=== PATIENT | female | born 1995 | race Caucasian/White ===

== ENCOUNTER 2021-07-06 21:38 | Inpatient (IN) | payer BC, OTHER ==
[~2021-07-06] VITALS: Ht 165.1 cm; Wt 79.4 kg
--- NOTE | 2021-07-06 23:06 | NUR ---
BIBSELF C/O L 4TH DIGIT (THE ONE NEXT TO THE PINKY) PAIN S/P DROPPING 18IN LAPTOP ON IT. PLACED IN BED, AWAITING ER MD FOR EVAL AND ORDERS.
[2021-07-06] MEDS ORDERED: TDAP [DIPH/PERTUSSIS/TET] 0.5 ML VIAL IM ONE (23:26)
[2021-07-06] MEDS: TDAP [DIPH/PERTUSSIS/TET] 0.5 ML VIAL IM ONE (23:30)
[2021-07-07] MEDS ORDERED: LIDOCAINE HCL/MPF 1% 30 ML VIAL IJ ONE (00:56)
[2021-07-07] MEDS ORDERED: BUPIVACAINE 0.5 % PF 150 MG/30 ML VIAL ONE ×2 (00:56→12:01)
--- NOTE | 2021-07-07 01:04 | NUR ---
ER AT BEDSIDE FOR WOUND CARE
--- NOTE | 2021-07-07 01:46 | NUR ---
BLOOD TAKEN AND SENT TO LAB.
[2021-07-07] MEDS ORDERED: CEFTRIAXONE 1GM BAG (ER ONLY) 50 ML IV ONE (01:48)
[2021-07-07] MEDS ORDERED: TDAP [DIPH/PERTUSSIS/TET] 0.5 ML VIAL IM ONE (01:48)
[2021-07-07] MEDS: TDAP [DIPH/PERTUSSIS/TET] 0.5 ML VIAL IM ONE (01:59)
[2021-07-07] MEDS ORDERED: CEFTRIAXONE 1GM BAG (ER ONLY) 1 GM/50 ML PIGGYBACK IV ONE (02:00)
[2021-07-07 02:01] LABS: BASOPHILS % (AUTO) 0.4 % (0.0-2.0); EOSINOPHILS % (AUTO) 0.8 % (0.0-6.0); HEMATOCRIT 36 % (33-45); HEMOGLOBIN 11.7 g/dL (11.5-14.8); LYMPHOCYTES # (AUTO) 2.4 K/uL (0.8-4.8); LYMPHOCYTES % (AUTO) 21.1 % (20.0-44.0); MEAN CORPUSCULAR HGB CONC 33 g/dl (31.0-36.0); MEAN CORPUSCULAR VOLUME 87 fL (82-100); MONOCYTES # (AUTO) 0.8 K/uL (0.1-1.30); MONOCYTES % (AUTO) 7.1 % (2.0-12.0); NEUTROPHILS # (AUTO) 7.9 K/uL (1.8-8.9); NEUTROPHILS % (AUTO) 70.6 % (43.0-81.0); PLATELET COUNT (AUTO) 274 K/uL (150-450); RED BLOOD CELL COUNT(AUTO) 4.11 MIL/uL (4.0-5.2); WHITE BLOOD COUNT (AUTO) 11.3 K/uL (4.3-11.0)
--- NOTE | 2021-07-07 02:12 | NUR ---
RESTING COMFORTABLY. VSS.
[2021-07-07 03:52] LABS: CREATININE 0.9 mg/dL (0.6-1.3)
--- NOTE | 2021-07-07 05:18 | NUR ---
RECIEVED BED 322-2
[2021-07-07] MEDS ORDERED: ZOLPIDEM TARTRATE 5 MG TABLET PO PRN (07:00)
[2021-07-07] MEDS ORDERED: MAGNESIUM HYDROXIDE 30 ML UDC PO PRN (07:00)
[2021-07-07] MEDS ORDERED: ACETAMINOPHEN 325 MG TABLET PO PRN (07:00)
[2021-07-07] MEDS ORDERED: MAG HYDROX/AL HYDROX/SIMETH 30 ML UDC PO PRN (07:00)
[2021-07-07] MEDS ORDERED: ONDANSETRON HCL/PF 4 MG/2 ML VIAL IVP PRN (07:00)
[2021-07-07] MEDS ORDERED: Z GUARD REMEDY 2 OZ OINT TP PRN (07:00)
[2021-07-07] MEDS: PANTOPRAZOLE 40 MG TABLET.DR PO SCH ×2 (07:30→09:04)
--- NOTE | 2021-07-07 07:37 | NUR ---
REPORT GIVEN TO UMA FRANCOIS FOR KALYANI
--- NOTE | 2021-07-07 07:37 | NUR ---
Katrin weaver in ED - 07/07/21 at 0737 by KHOA REPORT GIVEN TO UMA COYLE KALYANI
--- NOTE | 2021-07-07 07:45 | NUR ---
RN OPENING NOTE- PT FROM ED W LACERATION TO LEFT FOOT 4TH DIGIT. VS STABLE, NO DISTRESS, ADMIT PER PROTOCOL
--- NOTE | 2021-07-07 07:50 | NUR ---
HUMAN SERVICES INSTRUCTOR NOTE- 25 Y/O FEMALE PT DROPPED LAPTOP COMPUTER ON LEFT FOOT, DAMAGING 4TH TOE. LACERATION ND FURTHER INJURIES PRESENT. CATERPILLAR MECHANIC TO DO SURGICAL INTERVENTION AND THIS IS REASON FOR ADMISSION. VS - BP- 118/63, HR- 68, RR- 18, T- 97.9, SATS 97% RA. PT HAS IVF D5 1/2 NS AT 75/HR TO HEP LOCK 20G LA. DRESSING INTACT TO LEFT FOOT, ASSISTED TO BR, NEEDS ATTENDED, SURGICAL CONSENT PACKAGE PREPARED, MEDS PER ORDERS. SIDE RAILS UP, BED LOCKED, CALL LIGHT IN REACH. NPO STATUS MAINTAINED. ASSIST/ MONITOR
[2021-07-07] MEDS ORDERED: OMEP40CA21 PO (08:47)
[2021-07-07 09:00] VITALS: BP 118/63
[2021-07-07] MEDS: MORPHINE SULFATE INJ 2 MG/ML DISP.SYRIN IV PRN ×2 (09:04→15:17)
[2021-07-07] MEDS: IV D5/0.45 NACL 1,000 ML IV PRN (09:37)
[2021-07-07] MEDS ORDERED: BUPIVACAINE MPF 0.5% W/EPI INJ 30 ML VIAL ONE (10:42)
[2021-07-07] MEDS ORDERED: LIDOCAINE 1% INJ 50 ML MDV IJ ONE (10:42)
[2021-07-07] MEDS ORDERED: ANESTHESIA TRAY IN PYXIS 1 EA TRAY MC ONE (10:42)
[2021-07-07] MEDS ORDERED: MIDAZOLAM HCL 2 MG/2ML VIAL ONE (10:58)
[2021-07-07] MEDS ORDERED: FENTANYL PF 250MCG/5ML AMPUL ONE (10:58)
[2021-07-07] MEDS ORDERED: FAMOTIDINE/PF INJ 20 MG/2 ML VIAL IV ONE (10:59)
--- NOTE | 2021-07-07 11:45 | NUR ---
RN NOTE- [facility] CX COLLECTED AND SENT EARLIER. RESULTS NEG. PT TAKEN TO OR FOR SURGERY
[2021-07-07] MEDS ORDERED: BACITRACIN ZINC OINT (15 GM) 15 GM TUBE TP ONE (12:56)
[2021-07-07] MEDS ORDERED: BACITRACIN ZINC OINT PACKET 1 EA PACKET TP ONE (12:56)
--- NOTE | 2021-07-07 14:15 | NUR ---
RN NOTE- PT BACK FROM SURGERY TO LEFT FOOT. VS STABLE, AOX4, CALM, NO DISTRESS, MINIMAL PAIN, NO NEW ORDERS, CONTINUE CURRENT ORDERS, IV FLUIDS AND RX. MONITOR AND ASSIST.
[2021-07-07 16:00] VITALS: BP 95/50
--- NOTE | 2021-07-07 16:25 | NUR ---
RN NOTE- PT W INCREASED LT FOOT PAIN. MORPHINE 2 MG IVP ADMINISTERED [address] BECK INCREASED DOSE TO MORPHINE 4 MG IV Q4H PRN . ADDITIONAL MORPHINE 2 MG IVP ADMINISTERED NOW X ONE DOSE.
[2021-07-07] MEDS ORDERED: MORPHINE SULFATE INJ 2 MG/ML DISP.SYRIN IV ONE (17:00)
--- NOTE | 2021-07-07 17:30 | NUR ---
RN NOTE- COMFORTABLE. RX EFFECTIVE
--- NOTE | 2021-07-07 18:55 | NUR ---
RN CLOSING NOTE- PT IN BED, AOX4, COMFORTABLE, IVF D51/2NS AT 75/HR. DRESSING INTACT TO LT FOOT. NO DRAINAGE NOTED, ELEVATED W PILLOW. ONE EPISODE OF N&V. EATING DINNER AT PRESENT. PAIN RELIEVED W MSO4/ SIDE RAILS UP, BED LOCKED, CALL LIGHT IN REACH. MONITOR/ASSIST
[2021-07-07] MEDS ORDERED: MORPHINE SULFATE INJ 2 MG/ML DISP.SYRIN IV PRN (19:00)
--- NOTE | 2021-07-07 19:30 | NUR ---
MS RN OPENING NOTES: RECEIVED PATIENT IN BED, AWAKE, A/O X4. NO S/S OF DISTRESS NOTED. NO N/V NOTED. CALL LIGHT WITHIN REACH. BED IN LOWEST AND LOCKED POSITION. BOYFRIEND AT THE BEDSIDE. LEFT FOOT ELEVATED ON THE PILLOW, WITH GOOD CMS.
[2021-07-07 20:00] VITALS: BP_SYST 98; BP_DIAS 50; BP_DIAS 70
[2021-07-07] MEDS: HYDROCODONE/APAP 5/325MG TABLET PO PRN (20:56)
[2021-07-08] MEDS: HYDROCODONE/APAP 5/325MG TABLET PO PRN ×3 (01:18→10:32)
[2021-07-08] MEDS: IV D5/0.45 NACL 1,000 ML IV PRN (06:18)
[2021-07-08 06:32] LABS: BASOPHILS % (AUTO) 0.2 % (0.0-2.0); EOSINOPHILS % (AUTO) 0.2 % (0.0-6.0); HEMATOCRIT 33 % (33-45); HEMOGLOBIN 10.7 g/dL (11.5-14.8); LYMPHOCYTES % (AUTO) 5.7 % (20.0-44.0); MEAN CORPUSCULAR HGB CONC 32 g/dl (31.0-36.0); MEAN CORPUSCULAR VOLUME 88 fL (82-100); MONOCYTES # (AUTO) 1.6 K/uL (0.1-1.30); MONOCYTES % (AUTO) 9.1 % (2.0-12.0); NEUTROPHILS # (AUTO) 15.1 K/uL (1.8-8.9); NEUTROPHILS % (AUTO) 84.8 % (43.0-81.0); PLATELET COUNT (AUTO) 205 K/uL (150-450); RED BLOOD CELL COUNT(AUTO) 3.76 MIL/uL (4.0-5.2); WHITE BLOOD COUNT (AUTO) 17.8 K/uL (4.3-11.0)
[2021-07-08] MEDS ORDERED: CEFTRIAXONE 1 G in IV D5W 50 ML IV SCH (07:00)
[2021-07-08 07:06] LABS: CALCIUM, SERUM 7.8 mg/dL (8.5-10.1); MAGNESIUM 1.8 mg/dL (1.8-2.4); PHOSPHORUS 3.2 mg/dL (2.5-4.9); POTASSIUM 3.5 mmol/L (3.5-5.1)
--- NOTE | 2021-07-08 07:30 | NUR ---
MS RN OPENING NOTES RECEIVED PATIENT IN BED, AWAKE, A/O X4. NO S/S OF DISTRESS NOTED, IV ACCESS ON LAC G#20 ONGOING D5 1/2 NS AT 75 CC/HR, INFUSING WELL, NO S/SX OF INFILTRATION NOTED. SAFETY PRECAUTIONS IN PLACE: CALL LIGHT WITHIN REACH. BED IN LOWEST AND LOCKED POSITION. LEFT FOOT ELEVATED ON THE PILLOW, WILL CONTINUE TO MONITOR ACCORDINGLY.
[2021-07-08] MEDS: PANTOPRAZOLE 40 MG TABLET.DR PO SCH (07:37)
[2021-07-08 08:00] VITALS: BP 105/63
[2021-07-08] MEDS ORDERED: Hydrocodone/Apap 5/325MG PO (09:21)
[2021-07-08] MEDS ORDERED: HYDR-4209 PO (09:33)
--- NOTE | 2021-07-08 12:00 | NUR ---
DISCHARGE NOTES DISCHARGED PATIENT IN STABLE CONDITION. VS WITHIN NORMAL LIMITS. DC INSTRUCTIONS PROVIDED TO PATIENT, FOLLOW UP AND HOME MEDS DISCUSSED. PATIENT VERBALIZED UNDERSTANDING. BELONGINGS ACCOUNTED AND SIGNED FOR. IV ACCESS REMOVED, COVERED WITH GAUZE, NO BLEEDING NOTED. WHEELED TO LOBBY SAFELY ACCOMPANIED BY MELLISSA DIAZ). LEFT UNIT IN STABLE CONDITION. MD AND CHARGE NURSE AWARE OF DISCHARGE.
== END 2021-07-08 12:15 | disposition home or self-care (01) | DRG 517 ==
LOC: ER 21:43 → TRANSITION 07-07 05:06 → MED 07-07 05:14
PROVIDERS: ADMIT Internal Medicine; ATTEND Internal Medicine
PROC: 0QSR35Z Reposition Left Toe Phalanx with External Fixation Device, Percutaneous Approach (ICD-10-PCS; principal; 2021-07-07)
PROC: 0HDRXZZ Extraction of Toe Nail, External Approach (ICD-10-PCS; 2021-07-07)
DX: S92.532B Displaced fracture of distal phalanx of left lesser toe(s), initial encounter for open fracture (principal); W20.8XXA Other cause of strike by thrown, projected or falling object, initial encounter; Z20.822 Contact with and (suspected) exposure to COVID-19; Y93.89 Activity, other specified; Y92.009 Unspecified place in unspecified non-institutional (private) residence as the place of occurrence of the external cause
CPT/HCPCS: 36415; 73630-TC; 80048-TC; 83735-TC; 84100-TC; 84702-TC; 84703-TC; 85025-TC; 85730-TC; 87081-TC; 90715; A6402; A6403; C1713; C9803; G0378; J0690; J0696; J2250; J2270; J2405; J2704; J2765; J3010; J3490; J7030; J7060

== ENCOUNTER 2021-07-14 09:50 | Outpatient (CLI) | payer SELFPAY ==
[~2021-07-14 09:50] MED LIST: HYDR-4209 PO; Hydrocodone/Apap 5/325MG PO; OMEP40CA21 PO
[2021-07-14] MEDS ORDERED: BACITRACIN ZINC OINT PACKET 1 EA PACKET TP ONE (10:18)
== END 2021-07-14 23:59 | disposition home or self-care (01) ==
LOC: WOU 09:50
PROVIDERS: ATTEND Podiatrist Foot & Ankle Surgery
DX: S92.532D Displaced fracture of distal phalanx of left lesser toe(s), subsequent encounter for fracture with routine healing (principal); S91.21 Laceration without foreign body of toe with damage to nail; W20.8XXD Other cause of strike by thrown, projected or falling object, subsequent encounter; M79.675 Pain in left toe(s)
CPT/HCPCS: G0463

== ENCOUNTER 2021-07-28 10:17 | Outpatient (CLI) | payer SELFPAY ==
[2021-07-28] MEDS ORDERED: BACI/NEOM/POLY B OINT PKT 1 UDPKT PACKET ONE (11:23)
== END 2021-07-28 23:59 | disposition home or self-care (01) ==
LOC: WOU 10:17
PROVIDERS: ATTEND Podiatrist Foot & Ankle Surgery
DX: S92.532D Displaced fracture of distal phalanx of left lesser toe(s), subsequent encounter for fracture with routine healing (principal); W20.8XXD Other cause of strike by thrown, projected or falling object, subsequent encounter; M79.675 Pain in left toe(s); Z91.19 Patient's noncompliance with other medical treatment and regimen
CPT/HCPCS: G0463

== ENCOUNTER 2021-08-04 10:25 | Outpatient (CLI) | payer SELFPAY ==
[2021-08-04] MEDS ORDERED: LIDOCAINE HCL/MPF 1% 30 ML VIAL IJ ONE (10:35)
[2021-08-04] MEDS ORDERED: ETHYL CHLORIDE SPRAY 1 EA BOTTLE TP ONE (11:00)
[2021-08-04] MEDS ORDERED: BACITRACIN ZINC OINT PACKET 1 EA PACKET TP ONE (11:17)
== END 2021-08-04 23:59 | disposition home or self-care (01) ==
LOC: WOU 10:25
PROVIDERS: ATTEND Podiatrist Foot & Ankle Surgery
DX: S92.532D Displaced fracture of distal phalanx of left lesser toe(s), subsequent encounter for fracture with routine healing (principal); W20.8XXD Other cause of strike by thrown, projected or falling object, subsequent encounter
CPT/HCPCS: 99213; J3490; G0463